=== PATIENT | male | born 2000 | race American Indian/Alaskan Native ===

== ENCOUNTER 2022-01-25 10:00 | Emergency (ER) | payer SELFPAY ==
--- NOTE | 2022-01-25 10:52 | Emergency Department Report ---
ED Rash HPI - HPI Chief Complaint: Urogenital-Male Stated Complaint: CHECK UP/STD Duration: 3 Days Location: Other Suspected Cause: Other Rash Symptoms: No Itching, No Facial Swelling, No Tongue/Oral Swelling, No Breathing Difficulties, No Choking Sensation, No Wheezing/Dyspnea, No Peeling, No Blistering, No Fever, No Lightheaded, No Malaise, No Myalgias Severity: mild Other History: Patient is a 22-year-old that comes to the emergency room with his mother complaining of a herpes outbreak. He has lesions in his mouth. Not on his penis. This is an acute on chronic issue for the patient. He is out of his medications. Denies penile discharge. Denies testicular pain. Patient ambulatory not ill nontoxic on arrival to the ER ED Review of Systems ROS: Stated complaint: CHECK UP/STD Other details as noted in HPI Comment: All other systems reviewed and negative ED Past Medical Hx - Past Medical History Previous Medical History?: Yes Additional medical history: herpes - Surgical History Past Surgical History?: No - Family History Family history: no significant - Social History Smoking Status: Never Smoker Substance Use Type: None - Medications Home Medications: Home Medications Medication Instructions Recorded Confirmed Last Taken Type Acyclovir [Zovirax Tab] 400 mg PO Q8H #30 tab 01/25/22 Unknown Rx Rash Exam - Exam General: Vital signs noted. No distress. Alert and acting appropriately. HEENT: No Periorbital Edema, No Conjuctival Injection, No Chemosis, No Perioral Edema, No Tongue Edema, No Uvular Edema, No Compromised Airway, No Drooling Lungs: Yes Good Air Exchange (Normal Breath Sounds), No Wheezes, No Ronchi, No Stridor, No Cough, No Labored Respirations, No Retractions, No Use of Accessory Muscles, No Other Abnormal Lung Sounds Heart: Yes Regular, No Murmur Skin: Yes Other Other: Positive: Abdomen Normal, Neurologic Normal, Musculoskeletal Normal ED Course Vital Signs 01/25/22 10:23 Temperature 97.5 F L Pulse Rate 98 H Respiratory 14 Rate Blood Pressure 132/83 O2 Sat by Pulse 97 Oximetry ED Medical Decision Making - Medical Decision Making Vital Signs 01/25/22 10:23 Temperature 97.5 F L Pulse Rate 98 H Respiratory 14 Rate Blood Pressure 132/83 O2 Sat by Pulse 97 Oximetry Patient here for acute on chronic herpes. He states he currently has lesions on his tongue. He has run out of his acyclovir. ABCs intact. Vital signs stable. No penile discharge. No testicular pain. No abdominal pain. No fever. Patient being discharged home with discharge plan of care including diet, medications, activity and follow-up. He verbalizes understanding. - Differential Diagnosis A/C HERPES Critical care attestation.: If time is entered above; I have spent that time in minutes in the direct care of this critically ill patient, excluding procedure time. ED Disposition Clinical Impression: Herpes Disposition: 01 HOME / SELF CARE / HOMELESS Is pt being admited?: No Does the pt Need Aspirin: No Condition: Stable Instructions: Cold Sore, [id number] Additional Instructions: Follow-up with PCP for refills. Referral below Referrals: JEAN VEGA MD [Staff Physician] - 3-5 Days Time of Disposition: 10:50
[2022-01-25 11:25] VITALS: BP 128/85
== END 2022-01-25 10:50 | disposition home or self-care (01) ==
LOC: ED 10:00
DX: B00.9 Herpesviral infection, unspecified (principal)
CPT/HCPCS: 99282